=== PATIENT | female | born 1990 ===

== ENCOUNTER → 2018-12-11 | Outpatient (CLI) | payer BC ==
[~2018-12-11] MED LIST: FOLI-68 PO
[2018-12-11 14:45] LABS: PLATELET COUNT, AUTOMATED 239 K/uL (150-450)
== END ==
LOC: LAB 14:25
PROVIDERS: ATTEND Obstetrics & Gynecology
DX: R06.02 Shortness of breath (principal); R00.0 Tachycardia, unspecified
CPT/HCPCS: 36415; 85025

== ENCOUNTER → 2018-12-18 | Outpatient (CLI) | payer BC ==
--- NOTE | 2018-12-18 16:57 | RADIOLOGY IMAGING REPORT ---
FACILITY: [facility] PATIENT NAME: Michelle Li : 1990 MR: [id number] V: [id number] EXAM DATE: ORDERING PHYSICIAN: JENNI FLOR TECHNOLOGIST: Location: [facility] Patient: Michelle Li : 1990 Visit/Account:[id number] Date of Sevice: 12/18/2018 EXAMINATION: Ultrasound transabdominal OB > 14 weeks with anatomic evaluation HISTORY: Size inconsistent with dates. COMPARISON: None. TECHNIQUE: Transabdominal imaging was performed for assessment of the fetus and maternal pelvic structures. T ransvaginal imaging was not performed. FINDINGS: Placenta: Fundal without previa. Uterus: Gravid, otherwise normal Cervix: Long and closed. Maternal Ovaries: Not visualized. Maternal and other adnexa findings: Negative. Intrauterine gestations: One. presentation: Cephalic heart rate: Normal and regular at 141 bpm Amniotic fluid index: 14.12 cm Largest amniotic fluid pocket: 5.09 cm Gestational Parameters: BPD: 9.10 cm 37 weeks/ 0 days, 79 percentile HC: 32.78 cm 37 weeks/ 2 days, 47 percentile AC: 33.36 cm 37 weeks/ 2 days, 87 percentile FL: 7.00 cm 36 weeks/ 0 days, 39 percentile Average ultrasound age (AUA): 37 weeks/0 days, Estimated gestational age by LMP: 36 weeks/1 days, SHAWN 01/14/2019 Estimated weight (EFW): 3060 grams +/- 447 grams EFW for LMP: 72 percentile Anatomic Survey: The visualized intracranial contents and the images of the abdomen are normal. IMPRESSION: 1. Single living intrauterine fetus in the cephalic presentation. 2. Ultrasound age 37 weeks and 0 days, which is consistent with gestational age based on LMP. Gestati onal age by LMP is 36 weeks and 1 day, corresponding to an estimated date of delivery 01/14/2019. Report Dictated By: Junior Alarcon at 12/18/2018 4:45 PM Report E-Signed By: Junior Alarcon at 12/18/2018 4:52 PM WSN:[id number]
== END ==
LOC: RAD 14:20
PROVIDERS: ATTEND Obstetrics & Gynecology
DX: O26.849 Uterine size-date discrepancy, unspecified trimester (principal)

== ENCOUNTER → 2018-12-19 | Outpatient (CLI) | payer BC | LOC: LAB 09:07 | PROVIDERS: ATTEND Advanced Practice Midwife | DX: Z36.85 Encounter for antenatal screening for Streptococcus B (principal); B95.1 Streptococcus, group B, as the cause of diseases classified elsewhere | CPT/HCPCS: 87077; 87081; 87186 ==

== ENCOUNTER 2019-01-02 10:08 | Outpatient (CLI) | payer BC ==
[~2019-01-02 10:08] MED LIST changes: -ONDA4TAB9 SL
[2019-01-02] MEDS ORDERED: ONDANSETRON 4 MG ODT TABDP SL ONE (11:25)
--- NOTE | 2019-01-02 12:49 | EKG ---
FACILITY: [facility] [place] PATIENT NAME: IRAIDA STUART : [id number] MR: [id number] V: [id number] EXAM DATE: ORDERING PHYSICIAN: ELVIA CHAVEZ TECHNOLOGIST: MACKENZIE Test Reason : TACHYCARDIA Blood Pressure : / mmHG Vent. Rate : 097 BPM Atrial Rate : 097 BPM P-R Int : 140 ms QRS Dur : 084 ms QT Int : 354 ms P-R-T Axes : 052 053 026 degrees QTc Int : 449 ms Sinus rhythm Nonspecific ST findings No previous ECGs available Confirmed by ESDRAS MALONE ([id number]) on 01/02/2019 2:54:03 PM Referred By: AURA Confirmed By:ESDRAS MALONE
--- NOTE | 2019-01-02 13:42 | History & Physical ---
History of Present Illness Age of Patient: 28 : 1 Para or TPAL: 0 Estimated Gestational Age: 38.2 Chief Complaint Patient is a 28-year-old at 38 weeks and 2/7 days admitted for observation from clinic today with she and epigastric fundal tenderness. She denies headache, vision changes, or right upper quadrant pain. She reports that she has just not been feeling well all week and also has had periods of her heart racing with shortness of breath. She denies calf pain or tenderness. She also had one increased blood pressure in clinic today and her blood pressures in the last few weeks have been borderline, but not diagnostic. History Rubella Status: Immune Group B Strep Screen: Positive Allergies: Coded Allergies: No Known Drug Allergies (Unverified , 11/25/18) Family History: FH: breast cancer Maternal Aunt FH: hemochromatosis FATHER Med Rec Home Meds Reported Medications Vits W-Ca,Fe,Fa(<1MG) ( VITAMINS) 1 Each Tablet, 1 EACH PO DAILY, TAB 12/25/18 Folic Acid (FOLIC ACID) 1 Mg Tablet, 1 MG PO QDAY, TAB 11/25/18 Review of Systems Constitutional: No Fever Eyes: No Vision Change, No Photophobia Cardiovascular: Palpitations; No Chest Pain Respiratory: Shortness of Breath Gastrointestinal: Nausea; No Vomiting, No Diarrhea, No Constipation Genitourinary: No Dysuria Musculoskeletal: Pain (epigastric tenderness) Psychiatric: No Depression, No Anxiety Exam General Exam General Apperance: Alert/Awake/No Acute Distress Neuro: No Gross deficits Eyes: Normal Extraocular Movement & Vison Cardiovascular: Regular Rate and Rhythm Respiratory: No Respiratory Distress Abdomen: RUQ Non-Tender, Fundus - Tender, Active Bowel Sounds : Normal Extremities: No Cyanosis,Clubbing or Edema Integumentary: Skin Intact without Lesions or Rash Psychological: Alert & Oriented X3, Appropriate Mood & Affect Fetus Feeling Movement?: Yes Heart Tones: 130 Heart Tone Variabilty: Moderate FHT Accelerations: Present, 15X15 FHT Decelerations: None FHT Category: I Assessment and Plan RETAIL MORTGAGE BANKER Assessment: Stable RETAIL MORTGAGE BANKER Plan: Discharge Home Today Problems: (1) Epigastric abdominal pain affecting in first trimester Status: Acute Assessment & Plan: This is a 28-year-old at 38 2/7 by LMP and first trimester ultrasound with an estimated date of delivery of 01/14/19 here today for complaints of nausea and epigastric fundal tenderness. Plan to admit to triage: - NST, blood pressure monitoring every 30 minutes, and EKG (normal). -CBC, CMP and P:C WNL -Treat nausea with po zofran. Will send patient home with prescription for Zofran -Reviewed signs and symptoms of preeclampsia with patient and if symptoms persist to please return for further observation -Plan to discharge home after 2 hours and to return for regularly scheduled OB visit (2) 38 weeks gestation of (3) Nausea Status: Acute Assessment & Plan: Zofran as needed for nausea. Plan to send home prescription for Zofran. ELVIA CHAVEZ CNM January 02, 2019 13:42
[2019-01-02] MEDS ORDERED: ONDA4TAB9 SL (13:43)
--- NOTE | 2019-01-02 13:46 | OB/GYN Discharge Summary ---
Discharge Summary Reason for Hosp/Final Diag: (1) Epigastric abdominal pain affecting in first trimester Status: Acute Hospital Course & Plan: This is a 28-year-old at 38 2/7 by LMP and first trimester ultrasound with an estimated date of delivery of 01/14/19 here today for complaints of nausea and epigastric fundal tenderness. Plan to admit to triage: - NST, blood pressure monitoring every 30 minutes, and EKG (normal). BP normotensive, and NST reactive and reassuring -CBC, CMP and P:C WNL -Treat nausea with po zofran. Will send patient home with prescription for Zofran -Reviewed signs and symptoms of preeclampsia with patient and if symptoms persist to please return for further observation -Plan to discharge home after 2 hours and to return for regularly scheduled OB visit (2) 38 weeks gestation of (3) Nausea Status: Acute Hospital Course & Plan: Zofran as needed for nausea. Plan to send home prescription for Zofran. Condition: Improved Discharge: Home Home Meds Reported Medications Vits W-Ca,Fe,Fa(<1MG) ( VITAMINS) 1 Each Tablet, 1 EACH PO DAILY, TAB 12/25/18 Folic Acid (FOLIC ACID) 1 Mg Tablet, 1 MG PO QDAY, TAB 11/25/18 Follow up Referrals: ORTHOPEDIC DESIGNER @ [facility] with ELVIA CHAVEZ CNM Follow up in: 3-4 days, Keep scheduled appoint Discharge Diet: As Tolerates, Increase Fluid Intake Discharge Activity: As Tolerates ELVIA CHAVEZ CNM January 02, 2019 13:46
== END 2019-01-02 14:15 | disposition home or self-care (01) ==
LOC: UNDOADMIN 10:08 → OB 10:08 → L&D 10:08 → OB 10:08 → L&D 14:15 → UNDODISIN 14:15 → EDSTATUS 01-14 11:07
PROVIDERS: ATTEND Student in an Organized Health Care Education/Training Program
DX: O26.893 Other specified pregnancy related conditions, third trimester (principal); Z3A.38 38 weeks gestation of pregnancy; R06.02 Shortness of breath; R10.13 Epigastric pain
CPT/HCPCS: 93005; 99213; S0119

== ENCOUNTER → 2019-01-02 | Outpatient (CLI) | payer BC ==
[~2019-01-02] MED LIST changes: +ONDA4TAB9 SL; +PREN-127 PO
[2019-01-02 09:58] LABS: PLATELET COUNT, AUTOMATED 239 K/uL (150-450)
== END ==
LOC: LAB 09:37
PROVIDERS: ATTEND Advanced Practice Midwife
DX: O26.899 Other specified pregnancy related conditions, unspecified trimester (principal)
CPT/HCPCS: 36415; 82040; 82247; 82310; 82374; 82435; 82565; 82570; 82947; 84075; 84132; 84155; 84156; 84295; 84450; 84460; 84520; 85025

== ENCOUNTER 2019-01-19 09:30 | Inpatient (IN) | payer BC ==
[~2019-01-19] VITALS: Ht 180.3 cm; Wt 76.2 kg
[~2019-01-19 09:30] MED LIST changes: +ONDA4TAB9 SL
[2019-01-19] MEDS ORDERED: FAMOTIDINE(*) 20MG/50ML PREMIX 50 ML IVPB PRN (10:07)
[2019-01-19] MEDS ORDERED: OXYTOCIN 30 UNIT/NS 500 ML 500 ML IV PRN (10:07)
[2019-01-19] MEDS ORDERED: LR(*) 1000 ML BAG 1,000 ML IV SCH (10:07)
[2019-01-19] MEDS ORDERED: LIDOCAINE/SOD BICARB 8.4% SYR SC PRN (10:10)
[2019-01-19] MEDS ORDERED: LIDOCAINE 1% LOCAL 300 MG/30ML INJ PRN (10:10)
[2019-01-19] MEDS ORDERED: FLUSH 10 ML SYR IVP PRN (10:10)
[2019-01-19] MEDS ORDERED: fentaNYL CITR 100 MCG/2 ML AMP IVP PRN (10:10)
[2019-01-19] MEDS ORDERED: METOCLOPRAMIDE 10 MG/2 ML SDV IVP PRN (10:10)
[2019-01-19] MEDS ORDERED: PENICILLIN G 5 MILLUN VIAL 5 MIU in NS(*) 0.9% 100 ML MINI-BAG 100 ML IVPB ONE (10:10)
[2019-01-19] MEDS ORDERED: ONDANSETRON 4 MG/2 ML VIAL IVP PRN (10:15)
[2019-01-19 10:29] LABS: PLATELET COUNT, AUTOMATED 230 K/uL (150-450)
--- NOTE | 2019-01-19 10:46 | History & Physical ---
History of Present Illness Age of Patient: 28 : 1 Para or TPAL: 0 EDC per LMP: Jan 14, 2019 EDC per U/S: Jan 14, 2019 Estimated Gestational Age: 40.5 Chief Complaint Pt is a at 40 5/7 by LMP and first trimester US who presents to L&D today with leaking of fluid since 0945 and contractions starting at 0030 on 01/19/19. Reports +FM, no VB and denies preeclampsia symptoms. Having significant nausea and vomiting with contractions. here and very supportive. History Patient's Blood Type: O Positive Rubella Status: Immune Group B Strep Screen: Positive Allergies: Coded Allergies: No Known Drug Allergies (Unverified , 11/25/18) Social History: Denies history of smoking, etoh and illicit drug use including marijuana. Marrried and monogomous Family History: FH: breast cancer Maternal Aunt FH: hemochromatosis FATHER Med Rec Home Meds Active Scripts Ondansetron 4 Mg Odt (ONDANSETRON 4 MG ODT) 4 Mg Tab.rapdis, 4 MG SL Q4H for Nausea, #10 TAB 1 Refill Prov:ELVIA CHAVEZ Al CNAl 01/02/19 Reported Medications Vits W-Ca,Fe,Fa(<1MG) ( VITAMINS) 1 Each Tablet, 1 EACH PO DAILY, TAB 12/25/18 Folic Acid (FOLIC ACID) 1 Mg Tablet, 1 MG PO QDAY, TAB 11/25/18 Exam General Exam Vital Signs Vital Signs Date Time Temp Pulse Resp B/P (MAP) Pulse Ox O2 Delivery O2 Flow Rate FiO2 01/19/19 10:59 98.2 81 18 124/84 (97) Room Air General Apperance: Alert/Awake/No Acute Distress Neuro: No Gross deficits Eyes: Normal Extraocular Movement & Vison, PERRLA ENT: Normal Cardiovascular: Regular Rate and Rhythm Respiratory: No Respiratory Distress, Clear to Auscultation Abdomen: Gravid - Non-Tender, RUQ Non-Tender : Normal Extremities: No Cyanosis,Clubbing or Edema Integumentary: Skin Intact without Lesions or Rash Psychological: Alert & Oriented X3, Appropriate Mood & Affect Vaginal Discharge/Fluid?: Bloody Show Cervical Dialation: 7 Cervical Effacement (%): 100 Cervical Consistency: Soft Cervical Position: Anterior Station: 0 Presentation: Vertex Uterine Contractions(Q min): 2 Uterine Contraction Strength: Strong UC Resting Tone: Soft Fetus Feeling Movement?: Yes Estimated Weight(grams): 3500 Heart Tones: 150 Heart Tone Variabilty: Moderate FHT Accelerations: Present, 15X15 FHT Decelerations: None FHT Category: I Medical Decision Making Data Points Result Diagram: 01/19/19 1020 Assessment and Plan Hospital Day: 1 EMERGENCY MEDICINE PHYSICIAN ASSISTANT Assessment: Stable EMERGENCY MEDICINE PHYSICIAN ASSISTANT Plan: Routine Labor Care Problems: (1) SROM (spontaneous rupture of membranes) Onset Date: ~ 01/19/2019 Status: Acute Assessment & Plan: PD is a 28 y.o. at 40w5d wks with an Estimated Date of Delivery: 01/16/19 dated by LMP and first trimester US here today for complaints of leaking of fluid since 0945 this am with contractions starting at 0030 at home Labor state: Active labor, Plan for GBS treatment with PCN and expectant management for at least 4 hours until second dose of PCN. Encourage upright positions and hydrotherapy for pain well-being: Category I FHT: Intermittent monitoring for low risk once in the tub with Doppler Q 30 minutes, 1 minute before and 1 minute after a contraction Maternal well-being: VSS, normotensive, afebrile SROM at 0945 on 01/19/19 for clear moderate fluid, Bulging forebag noted PNL: GBS positive, Type/Rh O+, rubella immune Pain Management: Plans for unmedicated , hydrotherapy, but will consider epidural if long labor Feed: Breast c/b: * GBS positive- plan for PCN in labor * One elevated BP in : baseline labs WNL Anticipate , re-evaluate in 2-3 hours or prn (2) 40 weeks gestation of Status: Acute ELVIA CHAVEZ CNM Jan 19, 2019 10:46
[2019-01-19 10:59] VITALS: BP 124/84; Ht 180.3 cm; Wt 76.2 kg
--- NOTE | 2019-01-19 12:58 | Labor Progress Note ---
Labor Subjective Progress Notes Subjective Pt is in the tub tolerating the pain well. She is starting to feel a little bit of rectal pressure with contractions. Feeling Movement?: Yes Vaginal Discharge/Fluid: Bloody Show Labor Pain: Moderate Neurological: No Headache Eyes: No Visual Disturbances Labor Objective Vital Signs Vital Signs Date Time Temp Pulse Resp B/P (MAP) Pulse Ox O2 Delivery O2 Flow Rate FiO2 01/19/19 10:59 98.2 81 18 124/84 (97) Room Air Vaginal Discharge/Fluid?: Bloody Show Cervical Dialation: 9 Cervical Effacement (%): 100 Cervical Consistency: Soft Cervical Position: Anterior Station: 0 Presentation: Vertex Uterine Contractions(Q min): 1.5 Uterine Contraction Strength: Strong UC Resting Tone: Soft Fetus Estimated Weight(grams): 3500 Heart Tones: 155 Heart Tone Variabilty: Moderate (audibly) FHT Accelerations: Present (audibly) FHT Decelerations: None (audibly) FHT Category: I General Exam General Appearance: Alert/Awake/No Acute Distress ENT: Normal Neck: No Masses Psychological: Alert & Oriented X3, Appropriate Mood & Affect Other Result Diagram: 01/19/19 1020 Assessment and Plan Problems: (1) SROM (spontaneous rupture of membranes) Onset Date: ~ 01/19/2019 Status: Acute Assessment & Plan: PD is a 28 y.o. at 40w5d wks with an Estimated Date of Delivery: 01/16/19 dated by LMP and first trimester US here today for complaints of leaking of fluid since 0945 this am with contractions starting at 0030 at home Labor state: Transition phase labor. Encourage upright positions for descent and hydrotherapy for pain well-being: Category I FHT: Intermittent monitoring for low risk once in the tub with Doppler Q 30 minutes, 1 minute before and 1 minute after a contraction Maternal well-being: VSS, normotensive, afebrile SROM at 0945 on 01/19/19 for clear moderate fluid, Bulging forebag noted PNL: GBS positive, Type/Rh O+, rubella immune Pain Management: hydrotherapy and controlled breathing Feed: Breast c/b: * GBS positive- 1 dose of PCN given * One elevated BP in : baseline labs WNL Anticipate , re-evaluate in 2-3 hours or prn. Provider continuously at bedside (2) 40 weeks gestation of Status: Acute ELVIA CHAVEZ CNM Jan 19, 2019 12:58
[2019-01-19] MEDS ORDERED: PENICILLIN G 2.5 MILLUN/100 ML 100 ML IVPB SCH (15:00)
[2019-01-19] MEDS ORDERED: GLYCERIN/WITCH HAZEL LEAF 1 PK TP PRN (15:50)
[2019-01-19] MEDS ORDERED: MAGNESIUM HYDROXIDE* 30ML UDCP PO PRN (15:50)
[2019-01-19] MEDS ORDERED: LANOLIN OINT 7 GM TUBE TP PRN (15:50)
[2019-01-19] MEDS ORDERED: HYDROCORTISONE 2.5% CR 30GM TB PR PRN (15:50)
[2019-01-19] MEDS ORDERED: APAP/HYDROCODONE 325/5 TAB PO PRN (15:50)
--- NOTE | 2019-01-19 15:50 | OB Delivery Note ---
Delivery Note Vaginal Delivery Type: Spont. Vaginal Delivery Delivery Date: Jan 19, 2019 Delivery Time: 14:56 Delivery Anesthesia: Other Sex: Male [place] Apgars: 1 Minute, 5 Minute Repair Needed: Laceration, Vaginal, Perineal, Labial, 2nd Degree Estimated Blood Loss: 350 Notes: PD is a G1 now P1 at 41 5/7 with OOC on 01/19/19 at 0030. Pt was admitted to the family care unit @ 945 on 01/19/19 in early active la bor. Cervical exam on admission was 3.5/80/-3. She had SROM on 01/19/19 at 0945 for clear small fluid and AROM of forebag at 1402 for moderate clear fluid. Pt was GBS positive and received only one dose of PCN so inadequate treatment. FHR was CAT I primarily throughout first stage. Pt utilized hydrotherapy and controlled breathing primarily for pain management. Pt was completely dilated on 01/19/19 at 1414 and pt began pushing at spontaneously at that time with good maternal effort and good descent. At 1456 pt had a NSVB of live male infant APGARS 8/9 with weight not measured at time of this note. The head delivered spontaneously in the OA position and restituted JANNA with no nuchal cord. The anterior shoulder was delivered a traumatically and the posterior shoulder followed. Body delivered easily. Face was wiped with nose and bulb suction and then placed on the maternal abdomen. The was dried and stimulated and noted to have a spontaneous cry and spontaneous movement of all 4 extremities. Cord was clamped X 2 by CNM after pulsations ceased and cut by patient's spouse. Mother was in SF position. At 1505 the placenta and membranes delivered spontaneous and intact with a 3 vessel cord after gentle downward traction and maternal push. 30 units of Pitocin was placed in 500cc IV to firm the uterus and started immediately after placenta delivery. Upon inspection of the perineum a second degree perineal/vaginal laceration was noted and repaired using a 3.0 Vicryl rapide under 1% lidocaine.A left labial laceration was noted to be hemostatic not necessary for repair. Hemostasis observed. EBL 350 with fundus firm with minimal bleeding. Mom and baby were left in stable condition skin to skin. "I personally examined the patient and there are no unintended foreign objects in the vagina, and all sponge, lap and needle counts were correct. Carey Capellan CNM was present throughout the entire delivery and Dr. Oscar Valdez was my OB backup Refinery Operator Vapor Recovery Unit in Attendence: CAREY Montejo CNM Jan 19, 2019 15:50
[2019-01-19] MEDS ORDERED: LIDOCAINE 1% LOCAL 300 MG/30ML 30 ML ONE (16:16)
[2019-01-19] MEDS: BENZOCAINE 20% 60 ML BTL TP PRN (16:31)
[2019-01-19] MEDS: IBUPROFEN 800 MG TAB PO SCH (17:53)
[2019-01-19 19:28] VITALS: BP 121/56
[2019-01-19] MEDS: DOCUSATE CALCIUM 240 MG CAP PO SCH (21:08)
[2019-01-19 22:56] VITALS: BP 113/78
[2019-01-20] MEDS: IBUPROFEN 800 MG TAB PO SCH ×3 (01:14→17:00)
[2019-01-20 03:48] VITALS: BP 121/68
[2019-01-20] MEDS ORDERED: PENICILLIN G 2.5 MILLUN/100 ML 100 ML IVPB SCH (07:00)
[2019-01-20 08:05] VITALS: BP 118/69
[2019-01-20] MEDS: DOCUSATE CALCIUM 240 MG CAP PO SCH ×2 (09:10→21:35)
--- NOTE | 2019-01-20 11:01 | OB/GYN Progress Note ---
OB Subjective Progress Notes Subjective Patient is feeling well this morning. Breast-feeding is going well and baby has a good latch. She reports mild perineal pain but is tolerating it with ibuprofen. Baby will be circumcised tomorrow and then the plan will be for her to go home after that. GI: POS Flatus; NEG Nausea, NEG Vomiting, NEG Bowel Movement : Voiding Well, Vaginal Bleeding, Moderate Pain: Mild, Tolerating PO Pain Meds Neurological: No Headache Eyes: No Visual Disturbances OB Objective Physical Exam Vital Signs Date Time Temp Pulse Resp B/P (MAP) Pulse Ox O2 Delivery O2 Flow Rate FiO2 01/20/19 08:05 97.9 71 16 118/69 (85) Room Air Intake and Output 01/20/19 07:00 Intake Total 2404 ml Balance 2404 ml Intake Oral 800 ml IV Total 1604 ml # Voids 5 General Appearance: Alert/Awake/No Acute Distress, Afebrile Neurological: No Gross deficits Eyes: Normal Extraocular Movement & Vison, PERRLA ENT: Normal Neck: No Masses Respiratory: No Respiratory Distress, Clear to Auscultation Abdomen: Bowel Sounds Present, Fundus Firm, Bowel Sounds Present Incision: Intact (perineal laceration healing well with good approximation, mild swelling) : Normal Musculoskeletal: No Weakness/Pain Extremities: No Cyanosis,Clubbing or Edema Integumentary: Skin Intact without Lesions or Rash Psychological: Alert & Oriented X3, Appropriate Mood & Affect Result Diagram: 01/20/19 0542 Assessment and Plan Problems: (1) SROM (spontaneous rupture of membranes) Onset Date: ~ 01/19/2019 Status: Resolved (2) 40 weeks gestation of Status: Resolved (3) (normal spontaneous vaginal delivery) Status: Resolved (4) Second degree laceration of perineum, delivered, current hospitalization Onset Date: ~ 01/19/2019 Status: Acute Assessment & Plan: Encourage use of ibuprofen for perineal pain. Encouraged use of Sri bottle, dermoplast and Tucks after urinating. Reviewed signs and symp toms of infection and dehiscence. Educated that sutures will dissolve on their own (5) care and examination immediately after delivery Onset Date: ~ 01/19/2019 Status: Acute Assessment & Plan: Patient is status post day one after a normal spontaneous vaginal delivery. Her initial delivery she sustained a second-degree laceration that is healing well with good approximation. Patient is voiding well and passing gas. Breast-feeding seems to be going well and she has a good latch. The plan will be for her to be discharged tomorrow after baby has a circumcision ELVIA CHAVEZ CNM Jan 20, 2019 11:01
[2019-01-20 12:08] VITALS: BP 118/73
[2019-01-20] MEDS ORDERED: IBUP800T37 PO (12:13)
[2019-01-20] MEDS ORDERED: MEASLES,MUMP,RUBELLA VAC 0.5ML SUBQ ONE (12:15)
--- NOTE | 2019-01-20 12:19 | OB/GYN Discharge Summary ---
Discharge Summary Reason for Hosp/Final Diag: (1) SROM (spontaneous rupture of membranes) Onset Date: ~ 01/19/2019 Status: Resolved (2) 40 weeks gestation of Status: Resolved (3) (normal spontaneous vaginal delivery) Status: Resolved (4) Second degree laceration of perineum, delivered, current hospitalization Onset Date: ~ 01/19/2019 Status: Acute Hospital Course & Plan: Encourage use of ibuprofen for perineal pain. Encouraged use of Sri bottle, dermoplast and Tucks after urinating. Reviewed signs and symptoms of infection and dehiscence. Educated that sutures will dissolve on their own (5) care and examination immediately after delivery Onset Date: ~ 01/19/2019 Status: Acute Hospital Course & Plan: Reason for Hospitalization: Normal labor, and care Procedures Performed: none Delivery Type: Hospital Course: Pt was admitted to the family care unit @ 945 on 01/19/19 in early active labor. Cervical exam on admission was 3.5/80/-3. She had SROM on 01/19/19 at 0945 for clear small fluid and AROM of forebag at 1402 for moderate clear fluid.Pt was GBS positive and received only one dose of PCN, so adequate treatment for baby per fringe maker. FHR was CAT I primarily throughout first stage. Pt utilized hydrotherapy and controlled breathing primarily for pain management. She pushed for approximately 45 minutes once complete and had a normal spontaneous vaginal delivery of a male . She sustained a second- degree perineal laceration which was repaired and a left labial laceration which was not repaired as it was hemostatic. Delivery Information: see delivery note Estimated blood loss: 350 Episiotomy: none Laceration: Second degree perineal, left labia Pain Management: hydrotherapy Subjective: Patient is healing well today and ready to go home. She feels breast-feeding is going well and she has a good latch. Baby is getting a circumcision today and then a vertical home. Abdominal pain: None Perineal pain: Mild, but tolerating with by mouth ibuprofen Vaginal bleeding: minimal to scant without clots Flatus: yes UTI symptoms: Denies Feeding modality: Breast Problems with breast feeding: None Bowel movement: no Ambulating: yes Preeclampsia symptoms: denies Nausea/vomiting: none experience: Very satisfied control: Unsure but will discuss a two-week visit Objective Exam: Vitals: Normotensive and afebrile Breasts: Soft, nipples everted, no cracks or bleeding noted. Positive colostrum. Small blister on left breast Abdomen: Fundus firm one below the U Perineum: Healing well with good approximation, no signs and symptoms of infection or dehiscence Lochia: Moderate read without clots Extremities: Bilateral calves soft, nontender Disposition: Patient discharged to home in medically stable condition. No Known Allergies Medication Instructions Given to the Patient at Discharge: Take Ibuprofen 800mg PO TID for 5-7 days as needed Follow-up Appointment: 2&6 weeks with Carey Capellan CNM Activity/Restrictions: Pelvic rest; nothing in vagina for six weeks. Return Precautions: Patient instructed to call the clinic or return to hospital for fever > 101 degree F; chills; severe nausea or vomiting; inability to tolerate anything by mouth for > 24 hours; increasingly severe abdominal/pelvic pain; foul smelling vaginal discharge; vaginal bleeding > 1 pad per hour for > 2 hours; separation, drainage, or redness of incision or laceration site. Reviewed depression and pre-eclampsia s/s and when to seek care. [place] Vital Signs Vital Signs Date Time Temp Pulse Resp B/P (MAP) Pulse Ox O2 Delivery O2 Flow Rate FiO2 01/20/19 12:08 97.9 90 16 118/73 (88) Room Air Weight (Pounds): 168 Result Diagram: 01/20/19 0542 Condition: Improved Discharge: Home Home Meds Active Scripts Ibuprofen (IBUPROFEN) 800 Mg Tablet, 800 MG PO Q8H, #20 TAB 0 Refills Prov:CAREY CAPELLAN CNM 01/20/19 Ondansetron 4 Mg Odt (ONDANSETRON 4 MG ODT) 4 Mg Tab.rapdis, 4 MG SL Q4H for Nausea, #10 TAB 1 Refill Prov:CAREY CAPELLAN CNM 01/02/19 Reported Medications Vits W-Ca,Fe,Fa(<1MG) ( VITAMINS) 1 Each Tablet, 1 EACH PO DAILY, TAB 12/25/18 Folic Acid (FOLIC ACID) 1 Mg Tablet, 1 MG PO QDAY, TAB 11/25/18 Follow up Referrals: SOLID WASTE DIVISION SUPERVISOR @ [facility] with CAREY CAPELLAN CNM Follow up in: 2 wks PO Discharge Diet: As Tolerates, Resume Prior Admit Diet, Increase Fluid Intake Discharge Activity: As Tolerates, Pelvic Rest CAREY CAPELLAN CNM Jan 20, 2019 12:19
[2019-01-20 19:20] VITALS: BP 122/77
[2019-01-21] MEDS: IBUPROFEN 800 MG TAB PO SCH ×2 (01:38→09:03)
[2019-01-21 04:40] VITALS: BP 105/68
[2019-01-21] MEDS: DOCUSATE CALCIUM 240 MG CAP PO SCH (09:03)
[2019-01-21] MEDS: BENZOCAINE 20% 60 ML BTL TP PRN (09:03)
[2019-01-21 09:40] VITALS: BP 109/67
[2019-01-21] MEDS ORDERED: MEASLES,MUMP,RUBELLA VAC 0.5ML SUBQ ONE (10:10)
== END 2019-01-21 11:05 | disposition home or self-care (01) | DRG 807 ==
LOC: OB 09:30
PROVIDERS: ADMIT Student in an Organized Health Care Education/Training Program; ATTEND Student in an Organized Health Care Education/Training Program
PROC: 10E0XZZ Delivery of Products of Conception, External Approach (ICD-10-PCS; principal; 2019-01-19)
PROC: 0KQM0ZZ Repair Perineum Muscle, Open Approach (ICD-10-PCS; 2019-01-19)
PROC: 10907ZC Drainage of Amniotic Fluid, Therapeutic from Products of Conception, Via Natural or Artificial Opening (ICD-10-PCS; 2019-01-19)
DX: O99.824 Streptococcus B carrier state complicating childbirth (principal); Z37.0 Single live birth; O70.1 Second degree perineal laceration during delivery; Z23 Encounter for immunization; Z3A.40 40 weeks gestation of pregnancy
CPT/HCPCS: 36415; 85025; 85027; 86850; 86900; 86901; 90707; J2001; J2405; J2540; J7120